=== PATIENT | male | born 1975 | race Native Hawaiian/Other Pacific Islander ===

== ENCOUNTER → 2021-02-26 09:25 | Outpatient (CLI) | payer OTHER, SELFPAY ==
--- NOTE | 2021-02-26 | DI.MRI.S_ITS ---
PROCEDURE: MR LUMBAR SPINE WO/W CON INDICATIONS: Low back pain TECHNIQUE: Noncontrast sagittal T1 spin echo and T2 fast spin echo, sagittal STIR, axial T1 and T2 fast spin echo through the lumbar spine. In cases with scoliosis, additional coronal T2 fast spin echo may be performed. After the administration of contrast, sagittal and axial T1 spin echo with fat saturation through the lumbar spine. COMPARISON: [facility], CR, XR LUMBAR SPINE 2 OR 3 VIEWS, 05/11/2019, 9:41. [facility], MR, MR LUMBAR SPINE WITH/WITHOUT CONTRAST, 02/09/2019, 9:06. FINDINGS: Image quality: Excellent. Alignment and curvature: There is normal bony alignment. Bones: Postsurgical changes compatible with L4-S1 PLIF. Reactive endplate changes noted adjacent to the L4-L5 and L5-S1 discs. No acute vertebral body compression fractures. No suspicious marrow enhancement. Spinal cord: Conus medullaris terminates at the L1 level. Visualized spinal cord demonstrates normal signal, without suspicious enhancement. Paraspinous soft tissues: No paravertebral masses or abnormal enhancement. T12-L1: Normal appearance. L1-L2: Normal appearance. L2-L3: Normal appearance. L3-L4: Slight loss of disc signal. Minimal, diffuse disc bulge. Gagb-px-[id number] bilateral facet hypertrophy. Mild narrowing of the central canal. No neural foraminal narrowing. No neural compression. L4-L5: Status post fusion. Mild bilateral facet hypertrophy. No central stenosis. Moderate to severe left neural foraminal narrowing with slight compression of the exiting left L4 nerve root. L5-S1: Status post fusion. Mild bilateral facet hypertrophy. No central stenosis. Mild left neural foraminal narrowing. No neural compression IMPRESSION: 1. Status post L4-S1 PLIF. 2. Multilevel degenerative disc disease. 3. Multilevel facet arthropathy. 4. No severe central canal narrowing. 5. Moderate to severe left L4-L5 neural foraminal narrowing with slight compression of the exiting left L4 nerve root. Please correlate with clinical data. 6. No suspicious postcontrast enhancement. Dictated by: Kathleen Bush MD, PhD on 02/26/2021 at 12:09 Approved by: Kathleen Bush MD, PhD on 02/26/2021 at 12:36
== END ==
PROVIDERS: PCP Family Medicine; Referring Provider Family Medicine; Visit Provider Family Medicine
DX: M51.36 Other intervertebral disc degeneration, lumbar region (principal); M47.816 Spondylosis without myelopathy or radiculopathy, lumbar region
CPT/HCPCS: 72158

== ENCOUNTER → 2022-05-18 15:01 | Outpatient (CLI) | payer OTHER, SELFPAY ==
--- NOTE | 2022-05-18 15:04 | DI.RAD.S_ITS ---
PROCEDURE: XR LUMBAR SPINE 2-3V INDICATIONS: chronic back pain with radiculopathy TECHNIQUE: 3 views of the lumbar spine were acquired. COMPARISON: None. FINDINGS: Bones: 5 [id number]-[id number]-czsasby vertebrae are present. There is normal bony alignment. No vertebral body compression fractures. No suspicious bony lesions. Patient is status post posterior fixation and discectomy from L4-S1. Soft tissues: Overlying bowel gas pattern is normal. No suspicious soft tissue calcifications. IMPRESSION: Postsurgical change. No compression deformities. Dictated by: Neyda Zelaya M.D. on 05/18/2022 at 16:43 Approved by: Neyda Zelaya M.D. on 05/18/2022 at 16:44
== END ==
PROVIDERS: PCP Family Medicine; Referring Provider Family Medicine; Visit Provider Family Medicine
DX: M54.16 Radiculopathy, lumbar region (principal); G89.29 Other chronic pain; M54.50 Low back pain, unspecified; Z98.1 Arthrodesis status
CPT/HCPCS: 72100

== ENCOUNTER 2022-08-20 07:44 | Emergency (ER) | payer OTHER, SELFPAY ==
--- NOTE | 2022-08-20 07:55 | DI.RAD.S_ITS ---
PROCEDURE: XR FOOT LT MIN 3V INDICATIONS: injury to foot 9 days ago TECHNIQUE: 3 views of the foot were acquired. COMPARISON: None. FINDINGS: Bones: No fractures or dislocations. No suspicious bony lesions. Soft tissues: No tibiotalar joint effusion. Achilles tendon appears normal. IMPRESSION: No acute radiographic findings. Dictated by: Neyda Zelaya M.D. on 08/20/2022 at 8:29 Approved by: Neyda Zelaya M.D. on 08/20/2022 at 8:29
[2022-08-20 07:56] VITALS: BP 157/92; PULSE 94; RESP 18; TEMP 36.4; O2SAT 98; BMI 26.7
--- NOTE | 2022-08-20 08:18 | ED.LOWEXIN ---
HPI - Extremity Injury (Lower) General Chief Complaint: Extremity Injury, Lower Stated Complaint: lt foot big & pointer toe injured x9 days Time Seen by Provider: 08/20/22 07:54 Source: patient Mode of arrival: Family Vehicle History of Present Illness HPI Narrative: Patient is a healthy 47-year-old male who presents with left foot pain. He says he was playing football about 10 days ago he felt his foot fold over. He was able to ambulate but was quite swollen. He feels like he re-injured it at work lifting something heavy a couple days ago. It still is mildly swollen and is tender. No numbness or tingling. He has been icing and taking naproxen does not seem to help. Related Data Home Medications Medication Instructions Recorded Confirmed TRAMADO 50 mg PO 08/05/21 05/18/22 Previous Rx's Medication Instructions Recorded tramadol 50 mg tablet 50 mg PO Q8H PRN pain #90 tabs 05/18/22 varenicline 0.5 mg (11)-1 mg (42) See Rx Instructions PO PER PKG DIR 05/18/22 tablets in a dose pack (Chantix #53 ea Starting Month Box) Allergies Allergy/AdvReac Type Severity Reaction Status Date / Time No Known Drug Allergies Allergy Verified 10/22/21 14:46 Review of Systems Review of Systems Narrative: GENERAL: Denies chills,fever HEENT: Denies throat pain RESPIRATORY: Denies dyspnea, cough, wheezing CARDIOVASCULAR: Denies chest pain, palpitations GASTROINTESTINAL: Denies nausea, vomiting MUSCULOSKELETAL: See HPI SKIN: No rash, no laceration, no pruritus NEUROLOGIC: Denies weakness, dizziness, headache, numbness 8 point review of systems is negative except for those stated above and HPI Patient History Medical History Ankle pain (~2016) Chronic low back pain (~2005) Chronic pain syndrome Hip pain (~2020) Shoulder pain (~2018) Smoker Tinnitus (~2017) Surgical History Anesthesia Fusion of lumbar spine (~08/2014) Social History Smoking Status: Current some day smoker Smoking Status: Current some day smoker alcohol intake frequency: 0-2 drinks per day Substance Use Type: does not use Exam Initial Vital Signs Initial Vital Signs: Vital Signs Temperature 97.5 F L 08/20/22 07:56 Pulse Rate 94 H 08/20/22 07:56 Respiratory Rate 18 08/20/22 07:56 Blood Pressure 157/92 H 08/20/22 07:56 Pulse Oximetry 98 08/20/22 07:56 Oxygen Delivery Method 08/20/22 07:56 GENERAL: Well-appearing 47-year-old male no acute distress CARDIOVASCULAR: peripheral pulses in tact, cap refill <2 sec RESPIRATORY: No respiratory distress, speaks in full sentences without difficulty [ABDOMEN: Soft, nontender, no guarding or rebound] EXTREMITIES: Normal range of motion, no clubbing or edema. Neurovascularly intact Left foot mild midfoot swelling no erythema no contusion distal pedal pulse intact foot is stable ankle is stable Achilles tendon intact. Is able to move big toe but it is tender NEUROLOGICAL: Cranial nerves II through XII grossly intact. Normal gait and speech. SKIN: Warm, dry, no petechiae, no rashes or lesions. Course Orders Ordered: ED Orders 08/20/22 07:55 XR foot LT min 3V Stat Vital Signs Vital signs: Vital Signs - 8 hr 08/20/22 07:56 Temperature 97.5 F L Pulse Rate 94 H Respiratory Rate 18 Blood Pressure 157/92 H Pulse Oximetry 98 Oxygen Delivery Method Room Air MDM - Extremity Injury (Lower) Imaging Data Extremity x-ray #1: Radiologist's Impression: atient: Roni Hightower MR#: [id number] : 1975 Acct:[id number] Age/Sex: 47 / M Date of Service: 08/20/22 Loc: ED Accession Number: [id number] ?? Procedure: XR foot LT min 3V Ordering Provider: Carley Juan D.O. PROCEDURE:? XR FOOT LT MIN 3V ? INDICATIONS:? injury to foot 9 days ago ? TECHNIQUE:? 3 views of the foot were acquired.? ? COMPARISON:? None. ? FINDINGS:? ? Bones:? No fractures or dislocations.? No suspicious bony lesions.? ? Soft tissues:? No tibiotalar joint effusion.? Achilles tendon appears normal.? ? ? IMPRESSION:? No acute radiographic findings. ? ? Dictated by: Neyda Zelaya M.D. on 08/20/2022 at 8:29? MDM Narrative Medical decision making narrative: Foot x-rays negative for fracture probably a sprain. He is given orthopedic shoe. May require outpatient MRI Discharge Plan Departure Patient Disposition: Home Clinical Impression: Sprain of left foot Instructions: DI for Foot Sprain Activity Restrictions/Additional Instructions: *You have been diagnosed with left foot sprain *What to do: At this time x-ray is negative. I do recommend supportive shoe such as the orthopedic shoe. You may wear work boots if it is tolerable. No strenuous activity elevate ice as needed may require outpatient MRI if still having pain in about 2 more weeks *Continue to take medications as directed Naproxen 500 mg twice a day with food *Follow up with your primary care provider in 2-3 days or call [phone] *Return to ER if you should have increasing pain inability to walk or any new, worsening or concerning symptoms Prescriptions: No Action tramadol 50 mg tablet 50 mg PO Q8H PRN (Reason: pain) Qty: 90 0RF varenicline [Chantix Starting Month Box] 0.5 mg (11)- 1 mg (42) tablets,dose pack See Rx Instructions PO PER PKG DIR Qty: 53 0RF Rx Instructions: PO PER PKG DIR TRAMADO tablet 50 mg PO Rx Instructions: TAKE 3X WEEK Referrals: Elliot Reno MD [Primary Care Provider] -
== END 2022-08-20 09:01 | disposition home or self-care (01) ==
PROVIDERS: Emergency Provider Emergency Medicine; PCP Family Medicine
DX: S93.602A Unspecified sprain of left foot, initial encounter (principal); X50.0XXA Overexertion from strenuous movement or load, initial encounter
CPT/HCPCS: 73630; 99283

== ENCOUNTER 2023-03-02 05:49 | Emergency (ER) | payer OTHER, SELFPAY ==
--- NOTE | 2023-03-02 05:53 | ED.LOWEXIN ---
HPI - Extremity Injury (Lower) General Chief Complaint: Extremity Problem,Nontraumatic Stated Complaint: left knee pain Time Seen by Provider: 03/02/23 05:53 Related Data Home Medications Medication Instructions Recorded Confirmed TRAMADO 50 mg PO 08/05/21 05/18/22 Previous Rx's Medication Instructions Recorded varenicline 0.5 mg (11)-1 mg (42) See Rx Instructions PO PER PKG DIR 05/18/22 tablets in a dose pack (Chantix #53 ea Starting Month Box) tramadol 50 mg tablet 50 mg PO Q8H PRN pain #90 tabs 11/23/22 tramadol 50 mg tablet 50 mg PO Q8H PRN pain #14 tabs 03/02/23 Allergies Allergy/AdvReac Type Severity Reaction Status Date / Time No Known Drug Allergies Allergy Verified 10/22/21 14:46 Patient History Medical History Ankle pain (~2016) Chronic low back pain (~2005) Chronic pain syndrome Hip pain (~2020) Shoulder pain (~2018) Smoker Tinnitus (~2017) Surgical History Anesthesia Fusion of lumbar spine (~08/2014) Social History Smoking Status: Former smoker Smoking Status: Current some day smoker alcohol intake frequency: 0-2 drinks per day Substance Use Type: does not use Exam Initial Vital Signs Initial Vital Signs: Vital Signs Temperature 97.3 F L 03/02/23 06:02 Pulse Rate 82 03/02/23 06:02 Respiratory Rate 16 03/02/23 06:02 Blood Pressure 143/93 H 03/02/23 06:02 Pulse Oximetry 97 03/02/23 06:02 Oxygen Delivery Method Room Air 03/02/23 06:02 Course Orders Ordered: ED Orders 03/02/23 06:09 XR knee LT 3V Stat Discontinued Medications Lidocaine HCl (Lidocaine 1% (Pf) 5 Ml) 5 ml INJ NOW ONE Stop: 03/02/23 07:20 Last Admin: 03/02/23 07:30 Dose: 5 ml Documented By: ALLIE Vital Signs Vital signs: Vital Signs - 8 hr 03/02/23 06:02 Temperature 97.3 F L Pulse Rate 82 Respiratory Rate 16 Blood Pressure 143/93 H Pulse Oximetry 97 Oxygen Delivery Method Room Air Discharge Plan Departure Patient Disposition: Home Clinical Impression: Internal derangement of left knee Instructions: Meniscal Tear Activity Restrictions/Additional Instructions: Advil 3 tablets every 6 hours as needed for pain. Tramadol every 6 hours for added pain control. Alejo wrapped her knee when up and about. No work for the next 3 days. I am going to give you contact information for a local orthopedic surgeon. Call for an appointment. Prescriptions: New tramadol 50 mg tablet 50 mg PO Q8H PRN (Reason: pain) Qty: 14 0RF No Action tramadol 50 mg tablet 50 mg PO Q8H PRN (Reason: pain) Qty: 90 0RF varenicline [Chantix Starting Month Box] 0.5 mg (11)- 1 mg (42) tablets,dose pack See Rx Instructions PO PER PKG DIR Qty: 53 0RF Rx Instructions: PO PER PKG DIR TRAMADO tablet 50 mg PO Rx Instructions: TAKE 3X WEEK Referrals: Rosalind Marin MD [Physician] - Elliot Reno MD [Primary Care Provider] - Stand Alone Forms: Patient Portal/API, Work Release Note
[2023-03-02 06:02] VITALS: BP 143/93; PULSE 82; RESP 16; TEMP 36.3; O2SAT 97; BMI 28.5
--- NOTE | 2023-03-02 06:09 | DI.RAD.S_ITS ---
PROCEDURE: XR KNEE LT 3V INDICATIONS: pain TECHNIQUE: 3 views of the knee were acquired. COMPARISON: None. FINDINGS: Bones: No fractures or dislocations. No suspicious bony lesions. Calcific tendinopathy of the patellar tendon. Soft tissues: No joint effusion. No suspicious soft tissue calcifications. IMPRESSION: Calcific tendinopathy of the patellar tendon. Otherwise, no acute bony abnormality. Agree with preliminary report. Dictated by: Jhoan Youssef M.D. on 03/02/2023 at 8:06 Approved by: Jhoan Youssef M.D. on 03/02/2023 at 8:06
--- NOTE | 2023-03-02 07:09 | ED.EXTPRO ---
HPI - Extremity Problem General Chief complaint: Extremity Problem,Nontraumatic Stated complaint: left knee pain Time Seen by Provider: 03/02/23 05:53 Source: patient Mode of arrival: Ambulatory Limitations: no limitations History of Present Illness HPI Narrative: Patient presents with left knee pain and swelling. Pain was onset this morning. He is a prior history of left knee pain and swelling that has resolved without intervention. He denies a history of any significant left knee injuries in the past. The knee is painful to touch, painful with motion. There is an effusion. There is no warmth to his knee. He is no fever. He is no numbness or tingling in his left leg. There is no swelling to the left calf. The patient is retired . He has lumbar surgery from prior injuries. He is on tramadol for pain management. Related Data Home Medications Medication Instructions Recorded Confirmed TRAMADO 50 mg PO 08/05/21 05/18/22 Previous Rx's Medication Instructions Recorded varenicline 0.5 mg (11)-1 mg (42) See Rx Instructions PO PER PKG DIR 05/18/22 tablets in a dose pack ([employer] #53 ea Starting Month Box) tramadol 50 mg tablet 50 mg PO Q8H PRN pain #90 tabs 11/23/22 tramadol 50 mg tablet 50 mg PO Q8H PRN pain #14 tabs 03/02/23 Allergies Allergy/AdvReac Type Severity Reaction Status Date / Time No Known Drug Allergies Allergy Verified 10/22/21 14:46 Review of Systems Constitutional Constitutional: Denies body ache(s), Denies chills, Denies fever(s) and Denies weakness Musculoskeletal Musculoskeletal: Reports as per HPI and Denies numbness Integumentary/Breasts Skin/Breast: Denies lesions, Denies rash and Reports other (No erythema) Neurologic Neurologic: Denies numbness and Denies weakness Hematologic/Lymphatic On Anticoagulants: No Patient History Medical History Ankle pain (~2016) Chronic low back pain (~2005) Chronic pain syndrome Hip pain (~2020) Shoulder pain (~2018) Smoker Tinnitus (~2017) Surgical History Anesthesia Fusion of lumbar spine (~08/2014) Social History Smoking Status: Former smoker Smoking Status: Former smoker alcohol intake frequency: a few times a week Substance Use Type: does not use Exam Initial Vital Signs Initial Vital Signs: Vital Signs Temperature 97.3 F L 03/02/23 06:02 Pulse Rate 82 03/02/23 06:02 Respiratory Rate 16 03/02/23 06:02 Blood Pressure 143/93 H 03/02/23 06:02 Pulse Oximetry 97 03/02/23 06:02 Oxygen Delivery Method Room Air 03/02/23 06:02 Const General: cooperative, healthy appearing, comfortable, well developed and well groomed Skin General: no rashes or lesions noted Neuro General: patient alert, patient awake, patient oriented x3 and no focal motor deficits Extrem Other: Left knee edema. Range of motion 0-50 degrees. Range of motion is decreased due to pain with motion. There is a left knee effusion, but without erythema or warmth. Significant subpatellar pain with palpation. Patient will not permit anterior drawer testing, or testing for mediolateral laxity due to pain. No left calf tenderness. Course Course Course Narrative: The left medial knee was prepped with Betadine for aspiration. Lidocaine 1% was injected. The articular space was entered with an 18 gauge needle. Only a small bubble of fluid appeared in the hub of the syringe. A fluid sample was not obtained. The site was bandaged, and wrapped. Orders Ordered: ED Orders 03/02/23 06:09 XR knee LT 3V Stat Discontinued Medications Lidocaine HCl (Lidocaine 1% (Pf) 5 Ml) 5 ml INJ NOW ONE Stop: 03/02/23 07:20 Last Admin: 03/02/23 07:30 Dose: 5 ml Vital Signs Vital signs: Vital Signs - 8 hr 03/02/23 06:02 Temperature 97.3 F L Pulse Rate 82 Respiratory Rate 16 Blood Pressure 143/93 H Pulse Oximetry 97 Oxygen Delivery Method Room Air MDM - Extremity (Nontraumatic) Imaging Data Left knee x-ray: Radiologist's Impression: Calcific tendinopathy of the patellar tendon.? Otherwise, no acute bony abnormality. ? MDM Narrative Medical decision making narrative: Exam suggests internal derangement, meniscus injury suspected. However, x-ray shows calcified tendinitis. The patient is discharged on tramadol. He is referred to Orthopedics for further evaluation. Discharge Plan Departure Patient Disposition: Home Clinical Impression: Internal derangement of left knee Instructions: Meniscal Tear Activity Restrictions/Additional Instructions: Advil 3 tablets every 6 hours as needed for pain. Tramadol every 6 hours for added pain control. Alejo wrapped her knee when up and about. No work for the next 3 days. I am going to give you contact information for a local orthopedic surgeon. Call for an appointment. Prescriptions: New tramadol 50 mg tablet 50 mg PO Q8H PRN (Reason: pain) Qty: 14 0RF No Action tramadol 50 mg tablet 50 mg PO Q8H PRN (Reason: pain) Qty: 90 0RF varenicline [Chantix Starting Month Box] 0.5 mg (11)- 1 mg (42) tablets,dose pack See Rx Instructions PO PER PKG DIR Qty: 53 0RF Rx Instructions: PO PER PKG DIR TRAMADO tablet 50 mg PO Rx Instructions: TAKE 3X WEEK Referrals: Rosalind Marin MD [Physician] - Elliot Reno MD [Primary Care Provider] - Stand Alone Forms: Patient Portal/API, Work Release Note
[2023-03-02] MEDS: LIDOCAINE 1% (PF) 5 ML INJ (07:30)
[2023-03-02 09:26] VITALS: BP 134/97; PULSE 68; O2SAT 97
== END 2023-03-02 09:27 | disposition home or self-care (01) ==
PROVIDERS: Emergency Provider Emergency Medicine; PCP Family Medicine
DX: M23.92 Unspecified internal derangement of left knee (principal)
CPT/HCPCS: 73562; 99283

== ENCOUNTER → 2023-03-18 07:45 | Outpatient (CLI) | payer OTHER, SELFPAY ==
--- NOTE | 2023-03-18 07:45 | DI.MRI.S_ITS ---
PROCEDURE: MR KNEE LT WO CON INDICATIONS: LEFT knee pain, derangement TECHNIQUE: Noncontrast sagittal PD fast spin echo and T2 fast spin echo with fat saturation, sagittal 3-D FLASH with fat saturation; coronal T1 spin echo and PD fast spin echo with fat saturation, and axial PD fast spin echo with fat saturation through the knee. COMPARISON: None. FINDINGS: Image quality: Excellent. Menisci: Subtle signal abnormality involving medial periphery of posterior horn medial meniscus extending to inferior articulating surface suggestive of subtle oblique tear. The lateral meniscus is intact. The meniscal root ligaments appear intact. Cruciate ligaments: The anterior and posterior cruciate ligaments appear intact. Medial structures: The medial collateral ligament appears intact. The posterior oblique ligament, semimembranosus tendon insertions, oblique popliteal ligament, and meniscocapsular junction appear intact. Visualized portions of the pes anserinus tendons appear normal. No abnormal bursal fluid. Lateral structures: The lateral collateral ligament, long and short heads of the biceps femoris tendon appear intact. The popliteus tendon appears normal; the popliteofibular ligament appears intact. Iliotibial band appears normal. Anterior structures: Distal quadriceps tendinosis at its superior patellar insertion is seen. Moderate grade partial-thickness tear involving proximal patellar tendon near its inferior patellar insertion. Mild soft tissue edema along anterior aspect of patella and patella tendon is seen.. Patellar alignment is normal. No femoral trochlear dysplasia or ventral trochlear prominence. No edema in the infrapatellar fat pad. Bones and cartilage: No bone marrow contusions or fractures. The cartilage of the medial and lateral femorotibial compartments, as well as the patellofemoral compartment, appears normal in thickness. Joint space: There is small knee joint fluid. No Bates's cyst. Normal appearing synovial plicae are incidentally noted. IMPRESSION: 1. Moderate grade partial-thickness tear involving proximal patellar tendon near its inferior patellar insertion. Distal quadriceps tendinosis. No full-thickness tendon rupture. 2. Suggestion of very subtle oblique tear involving medial periphery of posterior horn medial meniscus extending to inferior articulating surface. No focal lateral meniscal tear. 3. The cruciate ligaments are intact. 4. No marrow edema. No fracture or dislocation. Articulating cartilages are intact. Dictated by: Nilesh Machado M.D. on 03/18/2023 at 10:34 Approved by: Nilesh Machado M.D. on 03/18/2023 at 10:36
== END ==
PROVIDERS: PCP Family Medicine; Referring Provider Nurse Practitioner Family; Visit Provider Nurse Practitioner Family
DX: M23.92 Unspecified internal derangement of left knee (principal); S86.812A Strain of other muscle(s) and tendon(s) at lower leg level, left leg, initial encounter
CPT/HCPCS: 73721

== ENCOUNTER → 2024-02-18 08:00 | Outpatient (CLI) | payer OTHER, SELFPAY ==
[2024-02-18 08:48] LABS: Add Manual Diff / Slide Review NO; Basophils Absolute Auto 0 /uL (0-100); Basophils Percent Auto 0.6 % (0-2); Eosinophils Absolute Auto 200 /uL (0-450); Eosinophils Percent Auto 3.3 % (2-4); Hematocrit 45.6 % (41-53); Hemoglobin 15.6 g/dL (13.5-17.5); Lymphocytes Absolute Auto 1900 /uL (1100-4500); Lymphocytes Percent Auto 28.9 % (25-40); Mean Corpuscular HGB Conc 34.3 % (30-36); Mean Corpuscular Hemoglobin 31.4 PG (26-34); Mean Corpuscular Volume 91.5 fL (80-100); Monocytes Absolute Auto 600 /uL (0-900); Monocytes Percent Auto 8.9 % (3-14); Neutrophils Absolute Auto 3800 /uL (1500-7000); Neutrophils Percent Auto 58.3 % (50-75); Platelet Count 223 X10^3/uL (150-400); Red Blood Cell Count 4.98 X10^6/uL (4.5-5.9); Red Cell Distribution Width 12.4 % (11.6-14.8); White Blood Cell Count 6.5 X10^3/uL (4.5-11.0)
[2024-02-18 09:06] LABS: Alanine Aminotransferase 44 IU/L (<50); Albumin 4.7 g/dL (3.5-5.0); Alkaline Phosphatase 76 U/L (38-126); Aspartate Aminotransferase 34 IU/L (17-59); BUN Creatinine Ratio 20.7 (6-22); Bilirubin Total 0.4 mg/dL (0.2-1.3); Blood Urea Nitrogen 18 mg/dL (9-20); Calcium 9.6 mg/dL (8.4-10.2); Carbon Dioxide 28 mmol/L (22-32); Chloride 106 mmol/L (98-107); Cholesterol 229 mg/dL (140-199); Estimated Glomerular Filt Rate > 60 mL/min (>60); Globulin 2.3 g/dL (1.7-4.1); Glucose 126 mg/dL (70-100); HDL Cholesterol 58 mg/dL (40-60); HEMOLYSIS < 15 (0-50); LDL Cholesterol Calculated 95 mg/dL (<100); Potassium 4.7 mmol/L (3.4-5.1); Sodium 137 mmol/L (137-145); Triglycerides 381 mg/dL (35-150)
[2024-02-18 09:36] LABS: TSH w/ Reflex to FT4 0.83 uIU/mL (0.47-4.68)
[2024-02-20 06:46] LABS: Apolipoprotein B 110 mg/dL (<90)
== END ==
LOC: LAB 08:00
PROVIDERS: PCP Family Medicine; Referring Provider Family Medicine; Visit Provider Family Medicine
DX: I10 Essential (primary) hypertension (principal); Z79.899 Other long term (current) drug therapy; Z13.220 Encounter for screening for lipoid disorders; L65.9 Nonscarring hair loss, unspecified
CPT/HCPCS: 36415; 80053; 80061; 82172; 84443; 85025

== ENCOUNTER → 2025-01-21 10:15 | Outpatient (CLI) | payer OTHER, SELFPAY ==
--- NOTE | 2025-01-21 10:18 | DI.RAD.S_ITS ---
PROCEDURE: XR CHEST 2V INDICATIONS: SHORTNESS OF BREATH TECHNIQUE: 2 views of the chest were acquired. COMPARISON: None. FINDINGS: Surgical changes and devices: None. Lungs and pleura: Lungs are clear. No pleural effusions or pneumothorax. Mediastinum: Mediastinal contours are normal. Heart size is normal. Bones and chest wall: No suspicious bony abnormalities. Soft tissues appear unremarkable. IMPRESSION: No acute cardiopulmonary abnormality is seen. Dictated by: Raleigh Márquez M.D. on 01/22/2025 at 3:35 Approved by: Raleigh Márquez M.D. on 01/22/2025 at 3:36
== END ==
PROVIDERS: PCP Family Medicine; Referring Provider Chiropractor; Visit Provider Chiropractor
DX: R06.02 Shortness of breath (principal)
CPT/HCPCS: 71046

== ENCOUNTER → 2025-03-11 10:31 | Outpatient (CLI) | payer OTHER, SELFPAY | PROVIDERS: PCP Family Medicine; Referring Provider Family Medicine; Visit Provider Chiropractor | DX: R06.02 Shortness of breath (principal); F17.210 Nicotine dependence, cigarettes, uncomplicated; J98.8 Other specified respiratory disorders; R94.2 Abnormal results of pulmonary function studies | CPT/HCPCS: 94060; 94729 ==

== ENCOUNTER → 2025-10-18 10:10 | Outpatient (CLI) | payer OTHER, SELFPAY ==
[2025-10-18 11:19] LABS: Add Manual Diff / Slide Review NO; Hematocrit 44.4 % (41-53); Hemoglobin 15.4 g/dL (13.5-17.5); Lymphocytes Absolute Auto 1600 /uL (1100-4500); Mean Corpuscular HGB Conc 34.7 % (30-36); Mean Corpuscular Hemoglobin 31.4 PG (26-34); Mean Corpuscular Volume 90.4 fL (80-100); Platelet Count 228 X10^3/uL (150-400)
[2025-10-18 11:27] LABS: Hemoglobin A1C% w Est Avg Glu 5.4 % (4.0-6.0)
[2025-10-18 11:35] LABS: Alanine Aminotransferase 47 IU/L (<50); Albumin 5.0 g/dL (3.5-5.0); Albumin Globulin Ratio 2.1 (1.0-2.8); Alkaline Phosphatase 75 U/L (38-126); Blood Urea Nitrogen 17 mg/dL (9-20); Calcium 10.3 mg/dL (8.4-10.2); Carbon Dioxide 27 mmol/L (22-32); Chloride 99 mmol/L (98-107); Cholesterol 241 mg/dL (140-199); Estimated Glomerular Filt Rate > 60 mL/min (>60); Globulin 2.4 g/dL (1.7-4.1); Glucose 105 mg/dL (70-99); HDL Cholesterol 75 mg/dL (40-60); HEMOLYSIS < 15 (0-50); Potassium 4.7 mmol/L (3.4-5.1); Sodium 136 mmol/L (137-145); Total Protein 7.4 g/dL (6.3-8.2); Triglycerides 114 mg/dL (35-150)
[2025-10-18 12:08] LABS: TSH w/ Reflex to FT4 1.14 uIU/mL (0.47-4.68)
== END ==
PROVIDERS: PCP Family Medicine; Referring Provider Family Medicine; Visit Provider Family Medicine
DX: E78.5 Hyperlipidemia, unspecified (principal); R73.9 Hyperglycemia, unspecified
CPT/HCPCS: 36415; 80053; 80061; 82172; 83036; 84443; 85025